=== PATIENT | female | born 1995 ===

== ENCOUNTER → 2023-10-10 | Outpatient (CLI) | payer BC | LOC: MC.RAD 07:30 | DX: N60.11 Diffuse cystic mastopathy of right breast (principal) ==

== ENCOUNTER → 2023-10-14 | Outpatient (CLI) | payer BC | LOC: MC.RAD 07:54 | DX: N63.20 Unspecified lump in the left breast, unspecified quadrant (principal) | CPT/HCPCS: A4648 ==